=== PATIENT | female | born 1930 | race Caucasian/White ===

== ENCOUNTER → 2016-04-16 | Outpatient (CLI) | payer MEDICARE, BC | END | disposition home or self-care (01) | LOC: RAD.S 04-09 13:00 | DX: M85.80 Other specified disorders of bone density and structure, unspecified site (principal); Z78.0 Asymptomatic menopausal state ==

== ENCOUNTER 2016-06-11 20:43 | Emergency (ER) | payer MEDICARE, BC ==
--- NOTE | 2016-06-12 19:58 | ER ---
ADMIT: 06/11/2016 RM/LOC: ER [facility] MR#: [id number] [address] [id number] [address] [place] [address] Emergency Room Report SEX: F AGE: 85 : 1930 DATE: 06/11/2016 HISTORY OF PRESENT ILLNESS: The patient is an 85-year-old female with a past medical history of hypertension; coronary artery disease, status post 2 stents, came to the ER with chief complaint of feeling funny in the chest, questionable palpitation for the last 2 days. The patient states she had intermittent episodes of feeling funny in the chest for a few seconds, which would resolve. In the ER, the patient states that this feeling has already resolved. The patient denies any chest pain or shortness of breath. The patient states she has been followed by Dr. Laboy yesterday and has close followup by Dr. Rivera, [employer] too. The patient states since yesterday the medication for hypertension has change in dosage and she believes that could be the cause. The patient at the moment is slightly anxious and states that she has a mild anxiety too. PHYSICAL EXAMINATION: VITAL SIGNS: The patient had systolic blood pressure of 170 with a diastolic of 80 in the ER, the patient was not tachycardic, O2 saturation was stable. GENERAL: The patient was in mild distress. The patient was alert and oriented to person, place, and time. HEAD and NECK: Noncontributory. There were no bruit on the neck and no murmurs radiating to the neck. CHEST: I did not hear any murmurs or extra sounds. LUNGS: Clear bilaterally. ABDOMEN: Soft. EXTREMITIES: Has mild swelling in the bilateral lower extremity, which per patient today increased because she had some salt in the food. EKG was normal sinus rhythm without any ST or T changes or Q-waves. Cardiac enzymes and troponin I were negative too. The patient received Ativan p.o. 0.5 mg, which per patient was very helpful and also per spouse was also very helpful in controlling anxiety. The rest of the lab work was noncontributory. The patient was re-examined. The patient has no headaches, no visual changes, no nausea or vomiting, and no other symptoms of end-organ damage. The patient is stable to be discharged to home to be followed up by the primary doctor tomorrow. The patient was advised to call the Cardiology office per their discretion tomorrow morning and let them know of the new happening. The patient is stable for discharge to home. Freddy Amezcua MD/ kishan JOB #: [id number] CC: Freddy Amezcua MD, Attending Physician Dima Laboy MD, Family Physician
== END 2016-06-11 22:47 | disposition home or self-care (01) ==
LOC: ER 20:43
DX: F41.9 Anxiety disorder, unspecified (principal); R00.2 Palpitations; I10 Essential (primary) hypertension; Z88.1 Allergy status to other antibiotic agents; Z88.5 Allergy status to narcotic agent; Z88.0 Allergy status to penicillin; Z88.2 Allergy status to sulfonamides; Z79.82 Long term (current) use of aspirin; Z79.899 Other long term (current) drug therapy; I25.10 Atherosclerotic heart disease of native coronary artery without angina pectoris